=== PATIENT | female | born 1995 | race Two or more races ===

== ENCOUNTER 2018-02-14 22:07 | Emergency (ER) | payer OTHER ==
[~2018-02-14] VITALS: Ht 167.6 cm; Wt 67.1 kg
[~2018-02-14 22:07] MED LIST: DOXYCYCLINE HY100 M1 PO; NEXIUM2.5 MG; NO; PROVENTIL3 ML/2.5 M IH; RYBIX ODT50 MG; ZANTAC150 MG PO
[2018-02-14] MEDS ORDERED: BUTALBITAL-ASA1 EACH (22:22)
== END 2018-02-14 23:38 | disposition home or self-care (01) ==
LOC: ER 22:07
DX: S91.112A Laceration without foreign body of left great toe without damage to nail, initial encounter (principal); W45.8XXA Other foreign body or object entering through skin, initial encounter; Y93.89 Activity, other specified; Y92.89 Other specified places as the place of occurrence of the external cause; Y99.8 Other external cause status

== ENCOUNTER 2021-01-25 09:14 | Emergency (ER) | payer OTHER ==
[~2021-01-25] VITALS: Ht 167.6 cm; Wt 72.6 kg
[~2021-01-25 09:14] MED LIST changes: +BUTALBITAL-ASA1 EACH
[2021-01-25] MEDS ORDERED: HYDRAZINE SULFAT1 GM MC (09:25)
[2021-01-25] MEDS ORDERED: VALACYCLOVIR1000 MG PO (12:57)
[2021-01-25] MEDS ORDERED: ABREVA2 GM TOP (12:57)
== END 2021-01-25 13:11 ==
LOC: ER 09:14
DX: K13.79 Other lesions of oral mucosa (principal)

== ENCOUNTER 2022-04-15 15:00 | Emergency (ER) | payer OTHER ==
[~2022-04-15] VITALS: Ht 167.6 cm; Wt 72.6 kg
[~2022-04-15 15:00] MED LIST changes: +ABREVA2 GM TOP; +HYDRAZINE SULFAT1 GM MC; +VALACYCLOVIR1000 MG PO
[2022-04-15] MEDS ORDERED: PEPCID AC20 MG PO (18:04)
[2022-04-15] MEDS ORDERED: ZOFRAN8 MG PO (18:04)
== END 2022-04-15 18:40 | disposition home or self-care (01) ==
LOC: ER 15:00
DX: K52.9 Noninfective gastroenteritis and colitis, unspecified (principal)